=== PATIENT | male | born 2000 | race Caucasian/White ===

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

== ENCOUNTER → 2020-02-18 | Outpatient (CLI) | payer OTHER ==
--- NOTE | 2020-02-19 08:00 | XR ---
EXAMINATION TYPE: XR chest 2V DATE OF EXAM: 02/18/2020 COMPARISON: Previous chest x-ray 06/12/2005 HISTORY: R 52, R00.2, chronic pain TECHNIQUE: Frontal and lateral views of the chest are obtained. FINDINGS: There is no focal air space opacity, pleural effusion, or pneumothorax seen. The cardiac silhouette size is within normal limits. The osseous structures are intact, patient shows posterior fixation of the thoracic lumbar spine and there is a spinal curvature. There is an associated rotati onal component. IMPRESSION: No acute cardiopulmonary process.
--- NOTE | 2020-02-19 08:08 | XR ---
Thoracic spine and lumbar spine HISTORY: R00.2, R 52, pain Frontal and lateral views of the thoracic spine on 3 images, 3 images of the lumbar spine Posterior fusion changes are present at the thoracic lumbar spine extending from T2 through L2. There is an S-shaped thoracic lumbar scoliosis. Thoracic and lumbar vertebral bodies show preserved height . Bone mineralization is maintained. Disc spaces are within normal limits. IMPRESSION: Postop changes for scoliosis.
--- NOTE | 2020-02-19 08:10 | XR ---
Cervical spine HISTORY: R00.2, R 52, chronic neck pain 5 views of cervical spine, comparison prior cervical spine 12/28/2016 Rudimentary cervical ribs noted at T7. Cervical vertebral bodies show preserved height, alignment, lauren ne mineralization. No significant foraminal encroachment. Disc spaces are normal. Loss of normal cerv ical lordosis could be due to muscle spasm. Prevertebral soft tissues are normal. Odontoid view is li mited. Postop changes incidentally noted in the thoracic spine. IMPRESSION: Loss of cervical lordosis. Additional findings above.
== END | disposition home or self-care (01) ==
LOC: LABWHC1 16:24
PROVIDERS: ATTEND Internal Medicine
DX: Z98.890 Other specified postprocedural states (principal); M43.8X2 Other specified deforming dorsopathies, cervical region; R00.2 Palpitations; R52 Pain, unspecified
CPT/HCPCS: 36415; 71046; 72050; 72070; 72100; 93005

== ENCOUNTER 2020-10-19 14:30 | Emergency (ER) | payer OTHER ==
[2020-10-19 14:36] VITALS: RESP 18
--- NOTE | 2020-10-19 15:39 | ED ---
General Adult HPI - General Chief complaint: Psychiatric Symptoms Stated complaint: Mental Health Time Seen by Provider: 10/19/20 15:16 Source: patient, RN notes reviewed, old records reviewed Mode of arrival: ambulatory Limitations: no limitations - History of Present Illness Initial comments: 20-year-old male presents for psychiatric evaluation. Patient has history of depression. He states he's had increased thoughts of suicide and has a plan. He denies suicidal attempt. He denies any self-harm. Patient states he plans to drown himself. No physical complaints. - Related Data Previous Rx's Medication Instructions Recorded Acetaminophen Tab [Tylenol] 650 mg PO Q4HR PRN tab 10/08/19 Melatonin 5 mg PO HS 30 Days tablet 10/08/19 Nicotine Polacrilex [Nicorette] 2 mg BUCCAL Q4HR PRN 14 Days gum 10/08/19 Paliperidone [Invega] 3 mg PO HS 30 Days tab.er.24 10/08/19 Allergies Allergy/AdvReac Type Severity Reaction Status Date / Time No Known Allergies Allergy Verified 10/19/20 14:36 Review of Systems ROS Statement: Those systems with pertinent positive or pertinent negative responses have been documented in the HPI. ROS Other: All systems not noted in ROS Statement are negative. Past Medical History Past Medical History: Musculoskeletal Disorder Additional Past Medical History / Comment(s): Scoliosis History of Any Multi-Drug Resistant Organisms: None Reported Past Surgical History: Back Surgery, Tonsillectomy Additional Past Surgical History / Comment(s): Scoliosis surgery and has a terence in his back in approx. 2014 Past Anesthesia/Blood Transfusion Reactions: No Reported Reaction Past Psychological History: Anxiety, Depression, Schizophrenia Smoking Status: Never smoker Past Alcohol Use History: None Reported Past Drug Use History: Marijuana General Exam Limitations: no limitations General appearance: alert, in no apparent distress Head exam: Present: atraumatic, normocephalic Eye exam: Present: normal appearance, PERRL ENT exam: Present: normal exam Neck exam: Present: normal inspection. Absent: tenderness, meningismus Respiratory exam: Present: normal lung sounds bilaterally. Absent: respiratory distress, wheezes Cardiovascular Exam: Present: regular rate, normal rhythm GI/Abdominal exam: Present: soft. Absent: distended, tenderness, guarding Extremities exam: Present: normal inspection, normal capillary refill. Absent: pedal edema, calf tenderness Neurological exam: Present: alert, oriented X3, CN II-XII intact. Absent: motor sensory deficit Psychiatric exam: Present: depressed, flat affect, suicidal ideation Skin exam: Present: warm, dry, intact. Absent: cyanosis, diaphoretic Course Vital Signs 10/19/20 10/19/20 10/19/20 14:32 15:36 17:00 Temperature 98.2 F Pulse Rate 81 Respiratory 18 18 18 Rate Blood Pressure 116/75 O2 Sat by Pulse 99 Oximetry - Reevaluation(s) Reevaluation #1: 10/19/20 15:39 Patient cleared for EPS. Medical Decision Making - Medical Decision Making Patient evaluated by EPS, feeling better. His been reassured and provided outpatient follow-up. He is able to sign a safety plan in the emergency department. I did reevaluate patient is no longer suicidal. He is given return parameters. - Lab Data Lab Results 10/19/20 Range/Units 15:20 Urine Opiates Screen Not Detected (NotDetected) Ur Oxycodone Screen Not Detected (NotDetected) Urine Methadone Screen Not Detected (NotDetected) Ur Propoxyphene Screen Not Detected (NotDetected) Ur Barbiturates Screen Not Detected (NotDetected) U Tricyclic Antidepress Not Detected (NotDetected) Ur Phencyclidine Scrn Not Detected (NotDetected) Ur Amphetamines Screen Not Detected (NotDetected) U Methamphetamines Scrn Not Detected (NotDetected) U Benzodiazepines Scrn Not Detected (NotDetected) Urine Cocaine Screen Not Detected (NotDetected) U Marijuana (THC) Screen Detected H (NotDetected) Disposition Clinical Impression: Depression Disposition: HOME SELF-CARE Condition: Fair Instructions (If sedation given, give patient instructions): Depression (ED) Additional Instructions: Please follow up with community mental health. Is patient prescribed a controlled substance at d/c from ED?: No Referrals: Elena Valladares MD [Primary Care Provider] - 1-2 days Time of Disposition: 18:49
[2020-10-19 15:46] LABS: Amphetamine Screen,Urine Not Detected (NotDetected); Barbiturate Screen,Urine Not Detected (NotDetected); Benzodiazepines Screen,Urine Not Detected (NotDetected); Cocaine Screen,Urine Not Detected (NotDetected); Methadone Screen, Urine Not Detected (NotDetected); Opiate Screen,Urine Not Detected (NotDetected); Oxycodone Screen, Urine Not Detected (NotDetected); Phencyclidine Screen,Urine Not Detected (NotDetected); Tricyclic Antidepressant,Urine Not Detected (NotDetected); Urn Cannabinoid Scrn Detected (NotDetected)
[2020-10-19 19:13] VITALS: BP 118/74; PULSE 76; TEMP 98.4
== END 2020-10-19 19:12 | disposition home or self-care (01) ==
LOC: EC 14:30
DX: F32.9 Major depressive disorder, single episode, unspecified (principal); F12.90 Cannabis use, unspecified, uncomplicated
CPT/HCPCS: 80306; 82075

== ENCOUNTER 2021-05-28 19:53 | Inpatient (IN) | payer MEDICAID, OTHER ==
--- NOTE | 2021-05-28 21:09 | ED ---
General Adult HPI - General Source: patient, RN notes reviewed Mode of arrival: ambulatory <Pamela Toledo - Last Filed: 05/29/21 00:36> <Tonny Ricks - Last Filed: 05/29/21 02:56> - General Chief complaint: Psychiatric Symptoms Stated complaint: Mental health eval Time Seen by Provider: 05/28/21 20:23 - History of Present Illness Initial comments: 20-year-old male presents to the emergency department independently requesting inpatient psychiatric admission. Patient states he is having increasingly persistent suicidal thoughts today after he had a falling out with his mother. Patient states he has thoughts of daily, however reports he has a plan to hurt himself and the means by which to do so. Reports a long-standing history of mental health problems and is established with a psychiatrist and counselor, however has not taken his medications as prescribed because he does not like the way he feels on them. Admits to marijuana use daily. Denies any medical complaints including fever, chills, chest pain, difficulty breathing, abdominal pain, nausea, vomiting, diarrhea, constipation, or dysuria. No attempts at self-harm. (Pamela Toledo) - Related Data Home Medications Medication Instructions Recorded Confirmed FLUoxetine HCL 40 mg PO DAILY 05/28/21 05/28/21 Loratadine 10 mg PO DAILY 05/28/21 05/28/21 Paliperidone [Invega] 9 mg PO DAILY 05/28/21 05/28/21 traZODone HCL [Desyrel] 200 mg PO HS 05/28/21 05/28/21 Allergies Allergy/AdvReac Type Severity Reaction Status Date / Time No Known Allergies Allergy Verified 05/28/21 22:17 Review of Systems ROS Other: All systems not noted in ROS Statement are negative. <Pamela Toledo - Last Filed: 05/29/21 00:36> ROS Other: All systems not noted in ROS Statement are negative. <Tonny Ricks - Last Filed: 05/29/21 02:56> ROS Statement: Those systems with pertinent positive or pertinent negative responses have been documented in the HPI. Past Medical History Past Medical History: Musculoskeletal Disorder Additional Past Medical History / Comment(s): Scoliosis History of Any Multi-Drug Resistant Organisms: None Reported Past Surgical History: Back Surgery, Tonsillectomy Additional Past Surgical History / Comment(s): Scoliosis surgery and has a terence in his back in approx. 2015 Past Anesthesia/Blood Transfusion Reactions: No Reported Reaction Past Psychological History: Anxiety, Depression, Schizophrenia Smoking Status: Never smoker Past Alcohol Use History: None Reported Past Drug Use History: Marijuana <Pamela Toledo - Last Filed: 05/29/21 00:36> General Exam Limitations: no limitations (Well-developed, well-nourished male in no acute distress. Initial temperature 99.0, pulse 112, respirations 19, blood pressure 121/73, pulse ox 99% on room air.) General appearance: alert, in no apparent distress Head exam: Present: atraumatic, normocephalic, normal inspection Eye exam: Present: normal appearance, PERRL, EOMI. Absent: scleral icterus, conjunctival injection, periorbital swelling Respiratory exam: Present: normal lung sounds bilaterally. Absent: respiratory distress, wheezes, rales, rhonchi, stridor Cardiovascular Exam: Present: regular rate, normal rhythm, normal heart sounds. Absent: systolic murmur, diastolic murmur, rubs, gallop, clicks GI/Abdominal exam: Present: soft, normal bowel sounds. Absent: distended, tenderness, guarding, rebound, rigid Neurological exam: Present: alert, oriented X3 Psychiatric exam: Present: flat affect Skin exam: Present: warm, dry, intact, normal color <Pamela Toledo - Last Filed: 05/29/21 00:36> Course Vital Signs 05/28/21 05/28/21 05/29/21 20:09 22:52 00:07 Temperature 99 F Pulse Rate 112 H 71 70 Respiratory 19 18 18 Rate Blood Pressure 121/73 126/77 125/63 O2 Sat by Pulse 99 97 97 Oximetry Medical Decision Making <Pamela Toledo - Last Filed: 05/29/21 00:36> <Tonny Ricks - Last Filed: 05/29/21 02:56> - Medical Decision Making 20-year-old male with a past medical history significant for mental illness presents to the emergency department requesting psychiatric evaluation after experiencing increasingly intense suicidal THROUGHOUT the day today. Upon arrival, patient is cooperative with plan of care and explains that he had a falling out with a family member today leading him to fixate on causing harm to himself. States he does have a plan to kill himself by means of "slitting my throat on my mother's porch" or "jumping in the river." Physical exam findings are unremarkable. Urinalysis was positive for marijuana which patient endorses daily use of. He denies use of alcohol or illicit drugs. Patient is medically cleared and pending psychiatric evaluation by EPS. This patient's care will be handed off to my attending Dr. Ricks. (Pamela Toledo) Psychiatry evaluated the patient. They determined that he does meet inpatient criteria. Circumflex was completed by myself. Patient was therefore admitted in stable condition to inpatient psychiatry. (Tonny Ricks) - Lab Data Lab Results 05/28/21 05/28/21 Range/Units 21:21 21:21 Urine Opiates Screen Not Detected (NotDetected) Ur Oxycodone Screen Not Detected (NotDetected) Urine Methadone Screen Not Detected (NotDetected) Ur Propoxyphene Screen Not Detected (NotDetected) Ur Barbiturates Screen Not Detected (NotDetected) U Tricyclic Antidepress Not Detected (NotDetected) Ur Phencyclidine Scrn Not Detected (NotDetected) Ur Amphetamines Screen Not Detected (NotDetected) U Methamphetamines Scrn Not Detected (NotDetected) U Benzodiazepines Scrn Not Detected (NotDetected) Urine Cocaine Screen Not Detected (NotDetected) U Marijuana (THC) Screen Detected H (NotDetected) Coronavirus (PCR) Not Detected (Not Detectd) Disposition <Pamela Toledo - Last Filed: 05/29/21 00:36> <Tonny Ricks - Last Filed: 05/29/21 02:56> Clinical Impression: Suicidal ideation, Encounter for psychiatric assessment Disposition: ADMITTED IP TO THIS [facility] Condition: Stable Referrals: Elena Valladares MD [Primary Care Provider] - 1-2 days
[2021-05-28 21:57] LABS: Cocaine Screen,Urine Not Detected (NotDetected); Opiate Screen,Urine Not Detected (NotDetected); Phencyclidine Screen,Urine Not Detected (NotDetected); Urn Cannabinoid Scrn Detected (NotDetected)
[2021-05-28 22:04] LABS: Amphetamine Screen,Urine Not Detected (NotDetected); Barbiturate Screen,Urine Not Detected (NotDetected); Benzodiazepines Screen,Urine Not Detected (NotDetected); Methadone Screen, Urine Not Detected (NotDetected); Oxycodone Screen, Urine Not Detected (NotDetected); Tricyclic Antidepressant,Urine Not Detected (NotDetected)
[2021-05-29] MEDS ORDERED: ACETAMINOPHEN TAB 325 MG TAB PO PRN (04:30)
[2021-05-29] MEDS ORDERED: HALOPERIDOL LACTATE 5 MG/ML 1 ML VIAL IM PRN (04:30)
[2021-05-29] MEDS ORDERED: MAG HYDROX/AL HYDROX/SIMETH 30 ML CUP PO PRN (04:30)
[2021-05-29] MEDS ORDERED: LORazepam 1 MG TAB PO PRN (04:30)
[2021-05-29] MEDS ORDERED: MAGNESIUM HYDROXIDE 2,400 MG/10 ML CUP PO PRN (04:30)
[2021-05-29] MEDS ORDERED: LORazepam 2 MG/ML INJ IM PRN (04:34)
[2021-05-29] MEDS ORDERED: haloperidoL 5 MG TAB PO PRN (04:35)
[2021-05-29 06:11] LABS: Appearance,Urine Clear (Clear); Bilirubin,Urine Negative (Negative); Blood,Urine Negative (Negative); Color,Urine Yellow; Glucose,Urine (UA) Negative (Negative); Ketones,Urine Negative (Negative); Leukocyte Esterase,Urine Negative (Negative); Nitrite,Urine Negative (Negative); PH, Urine 6.5 (5.0-8.0); Protein,Urine Negative (Negative); Urobilinogen,Urine <2.0 mg/dL (<2.0)
[2021-05-29 06:52] VITALS: RESP 16
[2021-05-29] MEDS ORDERED: ARIPiprazole 5 MG TAB PO STA (13:23)
[2021-05-29] MEDS ORDERED: FLUoxetine HCL 10 MG CAP PO STA (13:24)
--- NOTE | 2021-05-29 13:32 | P.HP ---
Psychiatric H&P - . H&P Date: 05/29/21 History & Physical: Allergies Allergy/AdvReac Type Severity Reaction Status Date / Time No Known Allergies Allergy Verified 05/28/21 22:17 Vital Signs Temp 97.9 F 05/29/21 06:45 Pulse 88 05/29/21 06:45 Resp 16 05/29/21 06:45 BP 127/73 05/29/21 06:45 Pulse Ox 95 05/29/21 06:45 Intake & Output 05/28/21 05/29/21 05/29/21 18:59 06:59 18:59 Weight 87.798 kg Laboratory Last Values Urine Color Yellow 05/28/21 21: Urine Appearance Clear (Clear) 05/28/21 21: Urine pH 6.5 (5.0-8.0) 05/28/21 21:21 Ur Specific [place] 1.020 (1.001-1.035) 05/28/21 21:21 Urine Protein Negative (Negative) 05/28/21 21:21 Urine Glucose (UA) Negative (Negative) 05/28/21 21: Urine Ketones Negative (Negative) 05/28/21 21:21 Urine Blood Negative (Negative) 05/28/21 21: Urine Nitrite Negative (Negative) 05/28/21 21: Urine Bilirubin Negative (Negative) 05/28/21 21: Urine Urobilinogen <2.0 mg/dL (<2.0) 05/28/21 21:21 Ur Leukocyte Esterase Negative (Negative) 05/28/21 21:21 Urine Opiates Screen Not Detected (NotDetected) 05/28/21 21: Ur Oxycodone Screen Not Detected (NotDetected) 05/28/21 21:21 Urine Methadone Screen Not Detected (NotDetected) 05/28/21 21: Ur Propoxyphene Screen Not Detected (NotDetected) 05/28/21 21:21 Ur Barbiturates Screen Not Detected (NotDetected) 05/28/21 21:21 U Tricyclic Antidepress Not Detected (NotDetected) 05/28/21 21:21 Ur Phencyclidine Scrn Not Detected (NotDetected) 05/28/21 21:21 Ur Amphetamines Screen Not Detected (NotDetected) 05/28/21 21:21 U Methamphetamines Scrn Not Detected (NotDetected) 05/28/21 21:21 U Benzodiazepines Scrn Not Detected (NotDetected) 05/28/21 21:21 Urine Cocaine Screen Not Detected (NotDetected) 05/28/21 21:21 U Marijuana (THC) Screen Detected (NotDetected) H 05/28/21 21:21 Coronavirus (PCR) Not Detected (Not Detectd) 05/28/21 21:21 05/29/21 13:31 IDENTIFYING DATA: Patient is a single, unemployed, on SSI, 20-year-old female who presents to the hospital for suicidal ideation with multiple plans. HPI: Patient presented to the hospital on 05/29/2021, brought in to the emergency department by police due to suicidal ideation with a plan. The patient called 911 on himself because he felt that he was going to hurt himself. He had multiple plans including killing himself on his mom's porch or filling his pockets filled with rocks and throwing himself into the river. The patient reports that he has been increasingly depressed because he did not like how his mother was treating his younger brother. He reports that he got into an argument with her and was kicked out of the home. He states that he has been sleeping at a laundromat. He endorses significant symptoms of depression including feelings of hopelessness, helplessness, excessive guilt, and suicidal ideation. He does report 2 prior attempts at suicide with the last time being years ago when he cut his wrist. In regards to other mood symptoms, the patient does not endorse any significant history of bipolar disorder. He reports no periods of excessive energy, impulsivity, grandiosity, or increased goal-directed behavior. The patient does endorse a significant history of psychotic symptoms. He states that he continues to experience auditory hallucinations that narrate what he does and also at times command him to hurt himself or others. The patient maintains that he has been engaged in cognitive behavioral therapy for schizophrenia and that he has been able to combat these hallucinations using the techniques taught to him. He expresses that this is the reason why he does not want to be on medications as the medications affect his ability to be creative with music. Furthermore, the patient does report that he expresses visual hallucinations. He reports that he was able to see a young girl's face on the ground when he was in the emergency department. He endorses occasional symptoms of paranoia stating that he feels like he has some thought broadcasting and others are able to read his mind. The patient has been petitioned and certified and is subsequently admitted for further evaluation. PAST PSYCHIATRIC HISTORY: Patient states that he has a history of schizophrenia. The patient is able to recall numerous psychotropic medications including Invega, Prozac, trazodone, Abilify, lithium, and Seroquel. He reports multiple inpatient psychiatric hospitalizations, with the last time being in September 2019. He is currently open with [facility] and sees Dr. Lopez. He reports 2 prior attempts at suicide in the past. PMH: Past Medical History: Musculoskeletal Disorder Additional Past Medical History / Comment(s): Scoliosis History of Any Multi-Drug Resistant Organisms: None Reported Past Surgical History: Back Surgery, Tonsillectomy Additional Past Surgical History / Comment(s): Scoliosis surgery and has a terence in his back in . 2014 Past Anesthesia/Blood Transfusion Reactions: No Reported Reaction Past Psychological History: Anxiety, Depression, Schizophrenia Smoking Status: Never smoker Past Alcohol Use History: None Reported Past Drug Use History: Marijuana ALLERGIES: NO KNOWN DRUG ALLERGIES CHEMICAL DEPENDENCY HISTORY: The patient admits to daily infrequent marijuana use. He denies any tobacco, alcohol, or illicit drug use. FAMILY PSYCHIATRIC/SUBSTANCE USE HISTORY: The patient reports that his father has schizophrenia. SOCIAL HISTORY: Patient was born and raised in [place], [place]. He currently stays with his grandmother. He reports he plans to stay with his stepbrother upon discharge. He reports a 10th grade education. He is single, never , and has no children. He receives Social Security. He denies any legal issues, history, or worship affiliation. MENTAL STATUS EXAM: General Appearance: Patient appears to be stated age is alert, directable, and attempts to cooperate. Patient appears to have slightly disheveled hygiene and grooming. Behavior: Patient is seated without any agitated behavior. Eye contact is appropriate Speech: Patient's speech is fluent and nonpressured. Monotone. Mood/Affect: Patient reports their mood is depressed, affect is congruent and blunted. Suicidality/Homicidality: Patient is currently denying any suicidal or homicidal ideation, intention, and/or plan. Perceptions: Patient endorses both auditory and visual hallucinations. Though content/process: Patient reports thought broadcasting. Memory and concentration: AOX3, grossly intact for the purposes of this session. Can spell "WORLD" backwards Judgment and insight: Fair STRENGTHS/WEAKNESSES: Strength is that the patient appears to be resilient and goal oriented. Weakness is that the patient is nonadherent with treatment. INTELLECT: average IMPRESSIONS: Schizophrenia Rule out schizoaffective disorder, depressed type PLAN: -Patient is admitted under involuntary but converted to adult formal voluntary status to MHU for stabilization of psychiatric symptoms and safety. Patient signed adult voluntary form and medication consent and is placed in patient's chart. -Medications : Will start patient on Prozac 30 mg by mouth daily for depression with plans to titrate this medication over the weekend Abilify 5 mg by mouth daily for psychosis and mood augmentation. Plan is to titrate to 10 mg over the weekend. -Ativan and Haldol PRN for agitation/aggression -Patient was counselled on substance abuse and desired to cut back on use -Patient was informed of the risks, benefits and side effects of the medication and patient verbally consented to taking the medications. Patient signed med consent form and was placed in chart. -Internal Medicine consult to perform medical evaluation and physical. -SW on board for discharge planning. Encourage patient to participate in groups to work on coping skills. 05/29/21 13:31
[2021-05-29] MEDS: traZODone HCL 100 MG TAB PO SCH (20:43)
--- NOTE | 2021-05-29 21:25 | P.CONS ---
History of Present Illness - History of Present Illness This is a pleasant 20 years old male with past medical history of schizophrenia, presents with signs and symptoms of schizophrenia and rule out schizoaffective disorder at mental health unit. Medical consult has been requested 14 medical management. Patient is walking the hallway normally. He denies any specific symptoms, no chest pain or dyspnea, no change in urine or bowel habits. No fever. He denies smoking, alcohol. Patient states that he uses marijuana vitals are stable Labs show an unremarkable urinalysis, urine drug screen is positive for marijuana Coronavirus not detected Review of Systems Review of systems CONSTITUTIONAL: No fever, no malaise, no fatigue. HEENT: No recent visual problems or hearing problems. Denied any sore throat. CARDIOVASCULAR: No orthopnea, PND, no palpitations, no syncope. PULMONARY: No shortness of breath, no cough, no hemoptysis. GASTROINTESTINAL: No diarrhea, no nausea, no vomiting, no abdominal pain. Normoactive bowel sounds. NEUROLOGICAL: No headaches, no weakness, no numbness. HEMATOLOGICAL: Denies any bleeding or petechiae. GENITOURINARY: Denies any burning micturition, frequency, or urgency. MUSCULOSKELETAL/RHEUMATOLOGICAL: Denies any joint pain, swelling, or any muscle pain. ENDOCRINE: Denies any polyuria or polydipsia. Past Medical History Past Medical History: Musculoskeletal Disorder Additional Past Medical History / Comment(s): Scoliosis History of Any Multi-Drug Resistant Organisms: None Reported Past Surgical History: Back Surgery, Tonsillectomy Additional Past Surgical History / Comment(s): Scoliosis surgery and has a terence in his back in approx. 2014 Past Anesthesia/Blood Transfusion Reactions: No Reported Reaction Past Psychological History: Anxiety, Depression, Schizophrenia Smoking Status: Former smoker Past Drug Use History: Marijuana Medications and Allergies Home Medications Medication Instructions Recorded Confirmed Type FLUoxetine HCL 40 mg PO DAILY 05/28/21 05/28/21 History Loratadine 10 mg PO DAILY 05/28/21 05/28/21 History Paliperidone [Invega] 9 mg PO DAILY 05/28/21 05/28/21 History traZODone HCL [Desyrel] 200 mg PO HS 05/28/21 05/28/21 History Allergies Allergy/AdvReac Type Severity Reaction Status Date / Time No Known Allergies Allergy Verified 05/28/21 22:17 Physical Exam Vitals: Vital Signs Temp Pulse Pulse Resp BP BP Pulse Ox 05/29/21 06:45 97.9 F 88 16 127/73 95 05/29/21 04:06 72 18 131/78 98 05/29/21 00:07 70 18 125/63 97 05/28/21 22:52 71 18 126/77 97 05/28/21 20:09 99 F 112 H 19 121/73 99 Intake and Output 05/28/21 05/29/21 05/29/21 22:59 06:59 14:59 Other: Weight 99.79 kg 87.798 kg GENERAL: The patient is alert and oriented x3, not in any acute distress. Well developed, well nourished. HEENT: Pupils are round and equally reacting to light. EOMI. No scleral icterus. No conjunctival pallor. Normocephalic, atraumatic. No pharyngeal erythema. No thyromegaly. CARDIOVASCULAR: S1 and S2 present. No murmurs, rubs, or gallops. PULMONARY: Chest is clear to auscultation, no wheezing or crackles. ABDOMEN: Soft, nontender, nondistended, normoactive bowel sounds. No palpable organomegaly. MUSCULOSKELETAL: No joint swelling or deformity. EXTREMITIES: No cyanosis, clubbing, or pedal edema. NEUROLOGICAL: Gross neurological examination did not reveal any focal deficits. SKIN: No rashes. no petechiae. Results Labs: Abnormal Lab Results - Last 24 Hours (Table) 05/28/21 Range/Units 21:21 U Marijuana (THC) Screen Detected H (NotDetected) Assessment and Plan Assessment: - Schizophrenia and schizoaffective disorder, management as per sec primary team - Substance abuse with cannabis, patient is counseled We recommend patient follow up with PCP in one week after discharge, patient was consulted with the same 2 for consulting us, we will see the patient on as-needed basis. These feel free to contact us for any further questions
[2021-05-30] MEDS: ARIPiprazole 10 MG TAB PO SCH (08:52)
[2021-05-30] MEDS: FLUoxetine HCL 20 MG CAP PO SCH (08:52)
--- NOTE | 2021-05-30 13:16 | P.PN ---
Subjective Progress Note Date: 05/30/21 Principal diagnosis: Diagnostic impression: Schizoaffective disorder bipolar type Personality disorder unspecified Cannabis use disorder chronic Subjective data: I was having increased amount of stress and had a plan to kill myself but at the last minute my dog walked in and saved my life because he wanted to play with me I have been on disability and I'm not sure if it's physical or mental but I have a terence in my back I uses marijuana daily in the house me be more creative I feel like I'm making progress Objective data: Patient exhibits poor hygiene with severe body odor Affect remains mildly euphoric Speech is clear with the euphoric overtones Insight into his problem is poor Problem-solving abilities impaired Judgment and insight are poor Plan: The patient continues to meet the criteria for involuntary psychiatric hospitalization and treatment for stabilization of psychiatric symptoms and safety With the bipolar like picture patient may benefit more from a mood stabilizer in combination with the antipsychotic Continue supportive care Continue current treatment and on the pham activities Tanmay Demarco M.D. 05/30/2021 Objective - Vital Signs Vital signs: Vital Signs Temp 98.4 F 05/30/21 07:27 Pulse 95 05/30/21 07:27 Resp 16 05/29/21 06:45 BP 110/58 05/30/21 07:27 Pulse Ox 98 05/30/21 07:27
[2021-05-30] MEDS: traZODone HCL 100 MG TAB PO SCH (21:21)
[2021-05-31] MEDS: ARIPiprazole 10 MG TAB PO SCH (08:24)
[2021-05-31] MEDS: FLUoxetine HCL 20 MG CAP PO SCH (08:24)
--- NOTE | 2021-05-31 11:50 | P.PN ---
Subjective Progress Note Date: 05/31/21 Principal diagnosis: Diagnostic impression: Schizoaffective disorder bipolar type Personality disorder unspecified Cannabis use disorder chronic Subjective data: I played the game with others and I was [employer] and I was in my best form Objective data: Patient exhibits poor hygiene with severe body odor Affect remains mildly euphoric Speech is clear with the euphoric overtones Insight into his problem is poor Problem-solving abilities impaired Judgment and insight are poor Plan: The patient continues to meet the criteria for involuntary psychiatric hospitalization and treatment for stabilization of psychiatric symptoms and safety With the bipolar like picture patient may benefit more from a mood stabilizer in combination with the antipsychotic Continue supportive care Continue current treatment and on the pham activities Tanmay Nilam Pavon 05/31/2021 Objective - Vital Signs Vital signs: Vital Signs Temp 98 F 05/31/21 06:30 Pulse 80 05/31/21 06:30 Resp 16 05/31/21 06:30 BP 133/81 05/31/21 06:30 Pulse Ox 98 05/30/21 07:27 Intake & Output 05/30/21 05/31/21 05/31/21 18:59 06:59 18:59 Weight 88.3 kg
[2021-05-31] MEDS: traZODone HCL 100 MG TAB PO SCH (22:11)
[2021-06-01] MEDS: FLUoxetine HCL 20 MG CAP PO SCH (08:03)
[2021-06-01] MEDS: ARIPiprazole 10 MG TAB PO SCH (08:03)
[2021-06-01] MEDS ORDERED: TEMAZEPAM 15 MG CAP PO PRN (13:56)
--- NOTE | 2021-06-01 13:57 | P.PN ---
Progress Note - Text Progress Note Date: 06/01/21 Clinical Problems: Schizophrenia chronic type with acute exacerbation, cannabis use disorder Interim history: I reviewed the medical record, interviewed the patient and discuss his treatment and treatment plan during team meeting. The patient announced that she feels ready for discharge. He feels that "this hospitalization" helped him "the most of any." He attributes the improvement to the change in medication and his experience interacting with staff and peers. However, he complained of increasing insomnia since he started on Abilify. He is reluctant to take the trazodone because of the marked morning sedation. She denied having thoughts of or suicide. He denied experiencing auditory or visual hallucinations. Denied thought insertion, thought broadcasting or thought control. He is attending most therapeutic groups and activities. He slept 6 hours last night. Mental status exam: He presented as a casually groomed 20-year-old male who was pleasant on approach. He made eye contact and appeared to attend to interview. He had no distinction features are prominent physical abilities. He had a blunted but bright facial expression. He showed no abnormality of psychomotor activity. His speech was spontaneous, rate, rhythm and volume. His affect was bright and stable. He denied suicidal ideation and wishes. He denied homicidal ideation. He denied feeling hopeless, helpless or worthless. He denied experiencing ideas reference, paranoid ideation or delusions. His thinking was concrete but his associations were coherent, logical and goal directed. He did not appear to responding to internal stimuli during our interview. Assessment: Patient continues to meet the criteria for inpatient psychiatric admission for symptom stabilization and safety. Plan: Continue inpatient treatment. Consider discharge on 06/02/2021. Continue suicide precautions. Continue Abilify 10 mg daily. Trial of Restoril 15 mg at bedtime when necessary for sleep encouraged continued participation in therapeutic groups and activities. Evaluate clinical status response to treatment daily basis.
[2021-06-01] MEDS: traZODone HCL 100 MG TAB PO SCH (21:41)
[2021-06-01] MEDS ORDERED: TEMAZEPAM 7.5 MG CAP PO PRN (21:48)
[2021-06-02 05:36] VITALS: BP 128/66; PULSE 84; TEMP 98.2
[2021-06-02] MEDS: ARIPiprazole 10 MG TAB PO SCH (08:58)
[2021-06-02] MEDS: FLUoxetine HCL 20 MG CAP PO SCH (08:58)
--- NOTE | 2021-06-02 14:56 | P.DS ---
Providers Date of admission: 05/29/21 04:25 Expected date of discharge: 06/02/21 Attending physician: Jaime Osorio MD Consults: 05/29/21 04:30 Consult Physician Routine Consulting Provider: Yadira Cohen Consult Reason/Comments: H&P Do you want consulting provider notified?: Already Contacted Primary care physician: Blaine Parker - Discharge Diagnosis(es) (1) Schizophrenia Current Visit: Yes Status: Acute Priority: High Hospital Course: Admission HPI: Patient is a single, unemployed, on SSI, 20-year-old female who presents to the hospital for suicidal ideation with multiple plans. Patient presented to the hospital on 05/29/2021, brought in to the emergency department by police due to suicidal ideation with a plan. The patient called 911 on himself because he felt that he was going to hurt himself. He had multiple plans including killing himself on his mom's porch or filling his pockets filled with rocks and throwing himself into the river. The patient reports that he has been increasingly depressed because he did not like how his mother was treating his younger brother. He reports that he got into an argument with her and was kicked out of the home. He states that he has been sleeping at a laundromat. He endorses significant symptoms of depression including feelings of hopelessness, helplessness, excessive guilt, and suicidal ideation. He does report 2 prior attempts at suicide with the last time being years ago when he cut his wrist. In regards to other mood symptoms, the patient does not endorse any significant history of bipolar disorder. He reports no periods of excessive energy, impulsivity, grandiosity, or increased goal-directed behavior. The patient does endorse a significant history of psychotic symptoms. He states that he continues to experience auditory hallucinations that narrate what he does and also at times command him to hurt himself or others. The patient maintains that he has been engaged in cognitive behavioral therapy for schizophrenia and that he has been able to combat these hallucinations using the techniques taught to him. He expresses that this is the reason why he does not want to be on medications as the medications affect his ability to be creative with music. Furthermore, the patient does report that he expresses visual hallucinations. He reports that he was able to see a young girl's face on the ground when he was in the emergency department. He endorses occasional symptoms of paranoia stating that he feels like he has some thought broadcasting and others are able to read his mind. The patient has been petitioned and certified and is subsequently admitted for further evaluation. Patient states that he has a history of schizophrenia. The patient is able to recall numerous psychotropic medications including Invega, Prozac, trazodone, Abilify, lithium, and Seroquel. He reports multiple inpatient psychiatric hospitalizations, with the last time being in September 2019. He is currently open with [facility] and sees Dr. Lopez. He reports 2 prior attempts at suicide in the past. Hospital course: Upon admission to the unit patient was initially endorsing significant symptoms of depression, suicidal ideation, and worsening psychosis in the context of recent homelessness. Patient was however directable and agreeable to commence treatment. Patient got along well with other patients on the unit and followed unit protocol. Patient was compliant with the medications and denied any side effects throughout hospital course. Patient was started on Prozac and Abilify for management of depression as well as schizophrenia. Patient spoke of his str essors and engaged in therapy both group and individual. Patient was also seen by medical team for history and physical exam. The patient also had a significant history of CBT for schizophrenia and was able to exercise discussed augmenting his antipsychotic medications. Over the course of the hospitalization, the patient spent significant improvement aggressors target symptoms depression, anxiety, suicidal ideation, and psychosis. On the day of discharge, the patient reports no suicidal or homicidal ideation, intention, and/or plan. He denies any access to firearms or other weapons. He reports no paranoia or other delusions. He expresses mild auditory hallucinations however states that these are well controlled. The patient is based future orientation and was like to speak with his outpatient providers at [facility] if he is able to transition to [facility] in the near future. The patient was counseled on his medications and importance for medication adherence and for regular follow- up with his outpatient providers for mental health for primary care. The patient was also counseled at length and avoiding all substances including alcohol and marijuana. Prior to discharge, family meeting will be arranged per director social service to answer questions for safety. Mental status exam: General Appearance: Patient appears to be stated age is alert, pleasant, and cooperative. Patient is in no acute distress and has fair hygiene and grooming Behavior: Patient is calmly seated without any agitated behavior. Speech: Patient's speech is fluent and nonpressured. Mood/Affect: Patient reports their mood is "much better", affect is congruent and euthymic to bright. Suicidality/Homicidality: Patient denies having any suicidal or homicidal ideation intent or plan. Perceptions: Patient denies any auditory or visual hallucinations. Though content/process: There is no evidence of any delusional thought content and thought process is linear and goal-directed. Patient is future oriented. Memory and concentration: AOX3, grossly intact for the purposes of this session. Can spell "WORLD" backwards correctly. Judgment and insight: Improved with guarded prognosis Impression: Schizophrenia Plan: -Continue with discharge today as patient has improved and stabilized psychiatrically and is not currently an imminent threat to himself and/or others. Patient will remain at chronically elevated risk due to the severity of his mental illness and his history of nonadherence with treatment (patient stopped invega on his own). -Continue medications: Prozac 40 mg by mouth daily for depression/anxiety Abilify 10 mg by mouth daily for psychosis and mood augmentation Trazodone 200 mg daily at bedtime for insomnia -Patient was counseled on the need for medication compliance and appropriate follow-up at mental health and also primary care for medical issues. Patient verbalized understanding and agreed. -Social work to arrange for and conduct family meeting to ensure safety upon discharge and answer any questions/concerns. Social work also to arrange for patients follow up appointments with [facility] for psychiatric care along with follow up with primary care provider. -Patient counseled on abstaining from recreational drugs and marijuana and alcohol. Was informed/educated on the adverse effects on their physical and mental health. Patient verbally agreed and understood. -Patient was instructed to return to the hospital or seek immediate medical care if their psychiatric or medical symptoms do worsen or reoccur. -Psychoeducation and supportive therapy provided to patient. Risks and benefits of pharmacological treatment versus the risks and benefits of nontreatment weight and discussed. Informed consent discussion held. Common side effects of psychotropics discussed such as, but not limited to headache, GI disturbance, sexual dysfunction, movement disorders, sedation, and orthostatic hypotension. Life threatening and blackbox warnings of prescribed medications also discussed. Potential risks of operating a vehicle or heavy machinery discussed with patient at length. Advised on importance of compliance and a reliable and responsible manner. Patient advised to review FDA consumer labeling of all medications prior to taking. Patient verbalized understanding of potential risks, and agrees with current treatment plan. Patient advised to medically contact physician/emergency personnel if any acute changes in condition occur. Vital Signs Temp 98.2 F 06/02/21 05:35 Pulse 84 06/02/21 05:35 Resp 16 06/02/21 05:35 BP 128/66 06/02/21 05:35 Pulse Ox 97 06/02/21 05:35 Laboratory Results Urine Color Yellow 05/28/21 21:21 Urine Appearance Clear (Clear) 05/28/21 21: Urine pH 6.5 (5.0-8.0) 05/28/21 21:21 Ur Specific [place] 1.020 (1.001-1.035) 05/28/21 21:21 Urine Protein Negative (Negative) 05/28/21 21:21 Urine Glucose (UA) Negative (Negative) 05/28/21 21:21 Urine Ketones Negative (Negative) 05/28/21 21:21 Urine Blood Negative (Negative) 05/28/21 21:21 Urine Nitrite Negative (Negative) 05/28/21 21:21 Urine Bilirubin Negative (Negative) 05/28/21 21:21 Urine Urobilinogen <2.0 mg/dL (<2.0) 05/28/21 21:21 Ur Leukocyte Esterase Negative (Negative) 05/28/21 21:21 Urine Opiates Screen Not Detected (NotDetected) 05/28/21 21: Ur Oxycodone Screen Not Detected (NotDetected) 05/28/21 21:21 Urine Methadone Screen Not Detected (NotDetected) 05/28/21 21:21 Ur Propoxyphene Screen Not Detected (NotDetected) 05/28/21 21:21 Ur Barbiturates Screen Not Detected (NotDetected) 05/28/21 21:21 U Tricyclic Antidepress Not Detected (NotDetected) 05/28/21 21:21 Ur Phencyclidine Scrn Not Detected (NotDetected) 05/28/21 21:21 Ur Amphetamines Screen Not Detected (NotDetected) 05/28/21 21:21 U Methamphetamines Scrn Not Detected (NotDetected) 05/28/21 21:21 U Benzodiazepines Scrn Not Detected (NotDetected) 05/28/21 21:21 Urine Cocaine Screen Not Detected (NotDetected) 05/28/21 21:21 U Marijuana (THC) Screen Detected (NotDetected) H 05/28/21 21:21 Coronavirus (PCR) Not Detected (Not Detectd) 05/28/21 21:21 Allergies Allergy/AdvReac Type Severity Reaction Status Date / Time No Known Allergies Allergy Verified 05/28/21 22:17 Patient Condition at Discharge: Stable Plan - Discharge Summary Discharge Rx Participant: No New Discharge Prescriptions: New FLUoxetine HCL [PROzac] 40 mg PO DAILY 30 Days cap ARIPiprazole [Abilify] 10 mg PO DAILY 30 Days tab traZODone HCL [Desyrel] 200 mg PO HS 30 Days tab Discontinued traZODone HCL [Desyrel] 200 mg PO HS FLUoxetine HCL 40 mg PO DAILY Paliperidone [Invega] 9 mg PO DAILY Loratadine 10 mg PO DAILY Discharge Medication List ARIPiprazole [Abilify] 10 mg PO DAILY 30 Days tab 06/02/21 [Rx] FLUoxetine HCL [PROzac] 40 mg PO DAILY 30 Days cap 06/02/21 [Rx] traZODone HCL [Desyrel] 200 mg PO HS 30 Days tab 06/02/21 [Rx] Follow up Appointment(s)/Referral(s): [facility] [Outside] - 06/04/21 1:30 pm (06-04-21 at 1:30 with Kristine Resendez at [facility]) Elena Valladares MD [Primary Care Provider] - 06/04/21 1:30 pm (06-04-21 at 1:30 with Kristine Resendez at [facility] 06-10-21 @ 10:[address] Lopez at [facility]) Patient Instructions/Handouts: Stress (DC), Mood Disorders (DC), Depression (DC), Anxiety (GEN) Activity/Diet/Wound Care/Special Instructions: Activity and diet as tolerated. Avoid the use of street drugs and alcohol. Take all medications as prescribed. When you are in need of refills on your medications please contact your medical provider and/or outpatient psychiatrist to have this done. Please go to scheduled outpatient appointment for aftercare treatment. If symptoms return or become worse, call the crisis line at and/or go to the nearest emergency room for evaluation Discharge Disposition: HOME SELF-CARE
== END 2021-06-02 14:54 | disposition home or self-care (01) | DRG 885 ==
LOC: EC 19:53 → 3MHU 05-29 04:25
PROVIDERS: ADMIT Psychiatry & Neurology Psychiatry; ATTEND Psychiatry & Neurology Psychiatry
DX: F20.9 Schizophrenia, unspecified (principal); R45.851 Suicidal ideations; F60.9 Personality disorder, unspecified; Z20.822 Contact with and (suspected) exposure to COVID-19; F12.10 Cannabis abuse, uncomplicated; F41.9 Anxiety disorder, unspecified; M41.9 Scoliosis, unspecified; G47.00 Insomnia, unspecified; Z79.899 Other long term (current) drug therapy; Z91.51 Personal history of suicidal behavior; Z87.891 Personal history of nicotine dependence; Z56.0 Unemployment, unspecified; Z59.00 Homelessness unspecified; Z90.89 Acquired absence of other organs; Z98.890 Other specified postprocedural states; Z71.51 Drug abuse counseling and surveillance of drug abuser; Z81.8 Family history of other mental and behavioral disorders
CPT/HCPCS: 80306; 81003; 82075; 87635; 99285